=== PATIENT | male | born 2000 | race Caucasian/White ===

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

== ENCOUNTER → 2021-01-08 | Outpatient (CLI) | payer BC ==
[~2021-01-08] MED LIST changes: +BACTDSTA PO; -LIDOCAINE 1% MDV 20ML VIAL SQ PRN; -LR 1,000 ML IV ONE; -SULF1TAB93 PO; -ceFAZolin SOD 2 GM in IV 1 EA IV ONE
== END ==
LOC: M LABSMTC 12:36
PROVIDERS: ATTEND Anesthesiology
DX: Z01.812 Encounter for preprocedural laboratory examination (principal); Z20.822 Contact with and (suspected) exposure to COVID-19

== ENCOUNTER 2021-01-13 12:03 | Day surgery (SDC) | payer BC ==
[~2021-01-13] VITALS: Ht 172.7 cm; Wt 103.6 kg
[~2021-01-13 12:03] MED LIST changes: +NS 1,000 ML IV ONE; +OMEP-221 PO
[2021-01-13] MEDS ORDERED: IBUP200T45 PO (12:25)
[2021-01-13] MEDS ORDERED: LIDOCAINE 2% 100MG/5ML SDV (FOR ANES.) As Ordered ONE (12:36)
[2021-01-13] MEDS ORDERED: fentaNYL 100 MCG/2 ML INJECTION (J3010) As Ordered ONE (12:36)
[2021-01-13] MEDS ORDERED: propofoL 200 MG/20 ML VIAL As Ordered ONE ×3 (12:36→13:04)
--- NOTE | 2021-01-13 13:12 | ROOR ---
Patient Name: Ruben Mason Procedure Date: 01/13/2021 12:48 PM Date of : 2000 Age: 20 Room: [facility] Gender: Male Note Status: Finalized Procedure: Upper GI endoscopy Indications: Heartburn Providers: DO Arlet Webber MD: AMANDA Horn Requesting Provider: Medicines: Propofol per Anesthesia Complications: No immediate complications. Procedure: Pre-Anesthesia Assessment: - Prior to the procedure, a History and Physical was performed, and patient medications and allergies were reviewed. The patient is competent. The risks and benefits of the procedure and the sedation options and risks were discussed with the patient. All questions were answered and informed consent was obtained. Patient identification and proposed procedure were verified by the physician, the nurse, the anesthesiologist and the neurodiagnostic technician in the endoscopy suite. Mental Status Examination: alert and oriented. Airway Examination: normal oropharyngeal airway and neck mobility. Respiratory Examination: clear to auscultation. CV Examination: normal. Prophylactic Antibiotics: The patient does not require prophylactic antibiotics. Prior Anticoagulants: The patient has taken no previous anticoagulant or antiplatelet agents. ASA Grade Assessment: II - A patient with mild systemic disease. After reviewing the risks and benefits, the patient was deemed in satisfactory condition to undergo the procedure. The anesthesia plan was to use monitored anesthesia care (MAC). Immediately prior to administration of medications, the patient was re-assessed for adequacy to receive sedatives. The heart rate, respiratory rate, oxygen saturations, blood pressure, adequacy of pulmonary ventilation, and response to care were monitored throughout the procedure. The physical status of the patient was re-assessed after the procedure. The Endoscope was introduced through the mouth, and advanced to the second part of duodenum. The upper GI endoscopy was accomplished without difficulty. The patient tolerated the procedure well. Findings: The Z-line was irregular. Biopsies were taken with a cold forceps for histology. Estimated blood loss was minimal. The entire examined stomach was normal. Biopsies were taken with a cold forceps for Helicobacter pylori testing. Impression: - Z-line irregular. Biopsied. - Normal stomach. Biopsied. Recommendation: - Patient has a contact number available for emergencies. The signs and symptoms of potential delayed complications were discussed with the patient. Return to normal activities tomorrow. Written discharge instructions were provided to the patient. - Await pathology results. - Return to my office at appointment to be scheduled. Procedure Code(s): --- Professional --- 09796, Esophagogastroduodenoscopy, flexible, transoral; with biopsy, single or multiple Diagnosis Code(s): --- Professional --- K22.8, Other specified diseases of esophagus R12, Heartburn CPT copyright 2019 [employer]. All rights reserved. The codes documented in this report are preliminary and upon service unit operator oil well review may be revised to meet current compliance requirements. Holden Munguia DO 01/13/2021 1:12:01 PM Electronically signed by Holden Munguia DO Number of Addenda: 0 Note Initiated On: 01/13/2021 12:48 PM Estimated Blood Loss: Estimated blood loss was minimal.
--- NOTE | 2021-01-13 13:15 | ROOR ---
Patient Name: Ruben Mason Procedure Date: 01/13/2021 12:49 PM Date of : 2000 Age: 20 Room: [facility] Gender: Male Note Status: Finalized Procedure: Colonoscopy Indications: Hematochezia Providers: DO Arlet Webber MD: AMANDA Horn Requesting Provider: Medicines: Propofol per Anesthesia Complications: No immediate complications. Procedure: Pre-Anesthesia Assessment: - Prior to the procedure, a History and Physical was performed, and patient medications and allergies were reviewed. The patient is competent. The risks and benefits of the procedure and the sedation options and risks were discussed with the patient. All questions were answered and informed consent was obtained. Patient identification and proposed procedure were verified by the physician, the nurse, the anesthesiologist and the injection mold tooling technician in the endoscopy suite. Mental Status Examination: alert and oriented. Airway Examination: normal oropharyngeal airway and neck mobility. Respiratory Examination: clear to auscultation. CV Examination: normal. Prophylactic Antibiotics: The patient does not require prophylactic antibiotics. Prior Anticoagulants: The patient has taken no previous anticoagulant or antiplatelet agents. ASA Grade Assessment: II - A patient with mild systemic disease. After reviewing the risks and benefits, the patient was deemed in satisfactory condition to undergo the procedure. The anesthesia plan was to use monitored anesthesia care (MAC). Immediately prior to administration of medications, the patient was re-assessed for adequacy to receive sedatives. The heart rate, respiratory rate, oxygen saturations, blood pressure, adequacy of pulmonary ventilation, and response to care were monitored throughout the procedure. The physical status of the patient was re-assessed after the procedure. The Colonoscope was introduced through the anus and advanced to the cecum, identified by appendiceal orifice and ileocecal valve. The colonoscopy was performed without difficulty. The patient tolerated the procedure well. Findings: Non-bleeding internal hemorrhoids were found during retroflexion. The hemorrhoids were Grade I (internal hemorrhoids that do not prolapse). Impression: - Non-bleeding internal hemorrhoids. - No specimens collected. Recommendation: - Patient has a contact number available for emergencies. The signs and symptoms of potential delayed complications were discussed with the patient. Return to normal activities tomorrow. Written discharge instructions were provided to the patient. - Repeat colonoscopy at age 51 for screening purposes. - Return to my office PRN. Procedure Code(s): --- Professional --- 24637, Colonoscopy, flexible; diagnostic, including collection of specimen(s) by brushing or washing, when performed (separate procedure) Diagnosis Code(s): --- Professional --- K64.0, First degree hemorrhoids K92.1, Melena (includes Hematochezia) CPT copyright 2019 [employer]. All rights reserved. The codes documented in this report are preliminary and upon braille coder review may be revised to meet current compliance requirements. Holden Munguia DO 01/13/2021 1:14:28 PM Electronically signed by Holden Munguia DO Number of Addenda: 0 Note Initiated On: 01/13/2021 12:49 PM Estimated Blood Loss: Estimated blood loss: none.
[2021-01-13 13:55] VITALS: BP 132/61
== END 2021-01-13 13:55 | disposition home or self-care (01) ==
LOC: M OPP 12:03
PROVIDERS: ATTEND Surgery
DX: K64.0 First degree hemorrhoids (principal); K62.5 Hemorrhage of anus and rectum; K22.8 Other specified diseases of esophagus; R12 Heartburn
CPT/HCPCS: 43239; 45378; 88305; J3010

== ENCOUNTER → 2021-07-06 | Outpatient (REF) | payer BC, SELFPAY ==
[~2021-07-06] MED LIST changes: +IBUP200T46 PO; -NS 1,000 ML IV ONE; -OMEP-221 PO; +OMEP40CA5 PO
[2021-07-06 21:12] LABS: GC DNA AMPLIFICATION NEGATIVE (NEGATIVE)
== END ==
LOC: M LAB REF 17:22
PROVIDERS: ATTEND Physician Assistant
DX: R36.1 Hematospermia (principal)

== ENCOUNTER → 2022-07-07 | Outpatient (REF) | payer BC | LOC: M LAB REF 16:52 | PROVIDERS: ATTEND Physician Assistant | DX: L02.211 Cutaneous abscess of abdominal wall (principal) ==

== ENCOUNTER → 2022-09-16 | Outpatient (REF) | payer BC | LOC: M LAB REF 15:26 | PROVIDERS: ATTEND Surgery | DX: D23.4 Other benign neoplasm of skin of scalp and neck (principal) ==

== ENCOUNTER 2023-02-18 11:32 | Emergency (ER) | payer BC ==
[~2023-02-18] VITALS: Ht 170.2 cm; Wt 100.0 kg
[2023-02-18] MEDS ORDERED: ALBU8.5H (11:48)
[2023-02-18] MEDS ORDERED: BUPR300T92 (11:48)
[2023-02-18] MEDS ORDERED: BUSP15TA47 (11:48)
[2023-02-18 12:15] LABS: HEMATOCRIT 44.6 % (42.0-52.0); HEMOGLOBIN 14.2 g/dl (13.5-17.5); MEAN CORPUSCULAR HEMOGLOBIN 27.4 pg (27.0-33.0); MEAN CORPUSCULAR HGB CONC 31.8 g/dl (32.0-36.5); MEAN CORPUSCULAR VOLUME 85.9 fl (80.0-96.0); PLATELET COUNT, AUTOMATED 334 10^3/uL (150-450); RED BLOOD COUNT 5.19 10^6/uL (4.30-6.10); WHITE BLOOD COUNT 7.7 10^3/uL (4.0-10.0)
[2023-02-18 12:39] LABS: AMPHETAMINES LEVEL URINE NEGATIVE (NEGATIVE); BARBITURATES URINE NEGATIVE (NEGATIVE); BENZODIAZEPINES URINE NEGATIVE (NEGATIVE); COCAINE METABOLITE URINE NEGATIVE (NEGATIVE); METHADONE URINE NEGATIVE (NEGATIVE)
[2023-02-18 12:40] LABS: OPIATES URINE NEGATIVE (NEGATIVE); PHENCYCLIDINE URINE NEGATIVE (NEGATIVE)
[2023-02-18 12:41] LABS: ETHYL ALCOHOL (ETHANOL) 0.003 % (0.000-0.010)
[2023-02-18 12:42] LABS: ACETAMINOPHEN LEVEL < 2.0 UG/ML (10.0-20.0)
[2023-02-18 12:43] LABS: ALBUMIN 4.3 G/DL (3.2-5.2); ALKALINE PHOSPHATASE 50 U/L (46-116); ALT/SGPT 21 U/L (7.0-40); AST/SGOT 16 U/L (<34); BILIRUBIN,DIRECT 0.4 MG/DL (<0.4); BILIRUBIN,TOTAL 1.1 MG/DL (0.3-1.2); BLOOD UREA NITROGEN 9 MG/DL (9-23); CALCIUM LEVEL 9.4 MG/DL (8.5-10.1); CARBON DIOXIDE LEVEL 25 MMOL/L (20-31); CHLORIDE LEVEL 106 MMOL/L (98-107); CREATININE FOR GFR 0.87 MG/DL (0.70-1.30); GLOMERULAR FILTRATION RATE > 60.0 (>60); GLUCOSE, FASTING 103 MG/DL (60-100); POTASSIUM SERUM 4.3 MMOL/L (3.5-5.1); SALICYLATE LEVEL < 3.0 MG/DL (<30); SODIUM LEVEL 143 MMOL/L (136-145)
[2023-02-18 12:45] LABS: CANNABINOIDS URINE POSITIVE (NEGATIVE); THYROID STIMULATING HORMONE 0.794 uIU/ML (0.55-4.78)
[2023-02-18 17:40] VITALS: BP 147/79; TEMP 99.1; O2SAT 99
== END 2023-02-18 17:42 | disposition home or self-care (01) ==
LOC: M ED 11:32
DX: F32.A Depression, unspecified (principal); K21.9 Gastro-esophageal reflux disease without esophagitis; F41.9 Anxiety disorder, unspecified; F17.290 Nicotine dependence, other tobacco product, uncomplicated; F17.200 Nicotine dependence, unspecified, uncomplicated; Z79.899 Other long term (current) drug therapy